=== PATIENT | male | born 1970 | race Caucasian/White ===

== ENCOUNTER 2017-10-26 06:48 | Day surgery (SDC) | payer OTHER | END 2017-10-26 11:59 | disposition home or self-care (01) | LOC: AMB-ENDOS 06:48 | DX: K57.32 Diverticulitis of large intestine without perforation or abscess without bleeding (principal); K64.2 Third degree hemorrhoids; K21.9 Gastro-esophageal reflux disease without esophagitis; K29.70 Gastritis, unspecified, without bleeding ==